=== PATIENT | female | born 1950 | race Caucasian/White ===

== ENCOUNTER 2017-11-23 07:33 | Emergency (ER) | payer MEDICARE ==
[~2017-11-23] VITALS: Ht 162.6 cm; Wt 62.6 kg
--- OUTSIDE RECORDS SUMMARY | 2017-11-23 07:36 | XMS REPORT | Clinical Summary ---
Author Author [facility] Organization [facility] Address Unknown Phone Unavailable Care Team Providers Care Director Of Reservations Name Role Phone Kourtney Bradshaw MD PCP Allergies Active Allergy Reactions Severity Noted Date Comments Citalopram Shortness Of Breath High 05/19/2017 Paroxetine Hcl Shortness Of Breath High 05/19/2017 Sertraline Shortness Of Breath High 05/19/2017 Latex Hives 05/19/2017 Sulfa (Sulfonamide Hives 05/19/2017 Antibiotics) Current Medications Prescription Sig. Disp. Refills Start End Date Status Date pantoprazole (PROTONIX) Take 1 tablet (40 mg 30 tablet 11 07/13/20 07/13/20 Active 40 MG EC tablet total) by mouth daily. 17 18 sodium,potassium,mag Take 1 Bottle by mouth 1 Bottle 0 07/13/20 sulfates (SUPREP BOWEL once for 1 dose. 17 17 PREP KIT) 17.5-3.13-1.6 gram recon soln Active Problems Not on file Encounters Date Type Specialty Care Team Description 10/23/2017 Procedure Pass Gastroenterology 10/22/2017 Telephone GastroenterMulu Wallace MD 10/21/2017 Telephone Mulu Ugarte MD 10/05/2017 Telephone Mulu Ugarte MD 08/21/2017 Procedure Pass Gastroenterology 08/19/2017 Telephone Gastroenterology Brianna Gregory MA 08/04/2017 Procedure Pass Gastroenterology 08/03/2017 Telephone Jesi Wolf LVN 07/14/2017 Telephone Mulu Ugarte MD 07/13/2017 Office Visit GastroenterMulu Wallace MD Dysphagia , unspecified type (Primary Dx);Colon cancer screening 07/13/2017 Telephone Mulu Ugarte., MD 07/06/2017 Telephone Gastroenterology Mulu Roque MD 05/19/2017 Emergency Emergency Medicine after 11/22/2016 Family History Medical History Relation Name Comments Colon cancer Neg Hx Colon polyps Neg Hx Social History Tobacco Use Types Packs/Day Years Used Date Never Smoker Alcohol Use Drinks/Week oz/Week Comments No Sex Assigned at Date Recorded Not on file Last Filed Vital Signs Vital Sign Reading Time Taken Blood Pressure 134/78 07/13/2017 3:07 PM CDT Pulse 86 07/13/2017 3:07 PM CDT Temperature 37.2 C (98.9 F) 07/13/2017 3:07 PM CDT Respiratory Rate 20 05/19/2017 3:12 PM CDT Oxygen Saturation 97% 05/19/2017 3:12 PM CDT Inhaled Oxygen - - Concentration Weight 57.6 kg (127 lb) 07/13/2017 3:07 PM CDT Height 147.3 cm (4' 10") 07/13/2017 3:07 PM CDT Body Mass Index 26.54 07/13/2017 3:07 PM CDT Plan of Treatment Health Maintenance Due Date Last Done Comments COLONOSCOPY 2000 MAMMOGRAM 2000 ZOSTER VACCINE 2010 PNEUMOCOCCAL 2015 POLYSACCHARIDE VACCINE AGE 65 AND OVER PNEUMOCOCCAL-13 2015 INFLUENZA VACCINE 05/19/2017 Results * ECG 12 lead (05/19/2017 4:12 PM) Component Value Ref Range Ventricular rate 72 Atrial rate 72 SC interval 164 QRSD interval 80 QT interval 410 QTC interval 448 P axis 1 35 QRS axis 1 -13 T wave axis 4 EKG impression Normal sinus rhythm-Moderate voltage criteria for LVH, may be normal variant-Borderline ECG-In automated comparison with ECG of 05-MAR-2016 19:12,-No significant change was found- Specimen Performing Laboratory [facility] [address] [place] [address] * Estimated GFR (05/19/2017 4:07 PM) Component Value Ref Range GFR Non Af Amer >90 mL/min/1.73 m2 GFR Af Amer >90 mL/min/1.73 m2 Comment: Chronic kidney disease: <60 mL/min/1.73m2 Kidney failure: <15 mL/min/1.73m2 The estimated GFR is calculated from the IDMS-traceable Modification of Diet in Renal Disease Equation. The accuracy of the calculation is poor when the creatinine is normal. Calculated values >90 mL/min/1.73m2 are not reported. This equation has not been validated in children (<18 years), women, the elderly (>70 years), or ethnic groups other than Caucasians and Americans. Specimen Performing Laboratory Plasma specimen [facility] [place] DEPARTMENT OF PATHOLOGY AND GENOMIC MEDICINE [address] [place] [address] * Troponin (05/19/2017 4:07 PM) Component Value Ref Range Troponin <0.01 0.00 - 0.60 ng/mL Comment: 0.11 - 1.49 ng/ml May indicate increased risk of acute coronary syndrome. >=1.5 ng/ml Consistent with acute myocardial infarction. The diagnostic value of a single normal or non-diagnostic result is questionable. Serial samples at 2-6 hour intervals are required to rule out acute myocardial injury. Specimen Performing Laboratory Plasma specimen [facility] [place] [place] DEPARTMENT OF PATHOLOGY AND GENOMIC MEDICINE [address] [place] [address] * CBC with platelet and differential (05/19/2017 4:07 PM) Component Value Ref Range WBC 11.1 (H) 4.2 - 11.0 k/uL RBC 4.46 4.04 - 5.86 m/uL HGB 13.6 11.5 - 15.3 g/dL HCT 41.1 34.0 - 45.0 % MCV 92.2 80.0 - 98.0 fL MCH 30.5 27.0 - 34.0 pg MCHC 33.1 31.5 - 36.5 g/dL RDW - SD 43.3 37.0 - 51.0 fL MPV 11.0 (H) 7.4 - 10.4 fL Platelet count 243 150 - 400 k/uL Nucleated RBC 0.00 /100 WBC Neutrophils 89.5 (H) 36.0 - 66.0 % Lymphocytes 5.4 (L) 24.0 - 44.0 % Monocytes 3.7 0.0 - 6.0 % Eosinophils 0.2 0.0 - 6.0 % Basophils 0.1 0.0 - 1.2 % Immature granulocytes 1.1 (H) 0.0 - 1.0 % Specimen Performing Laboratory Blood [facility] [place] [place] DEPARTMENT OF PATHOLOGY AND GENOMIC MEDICINE [address] [place] [address] * B natriuretic peptide (05/19/2017 4:07 PM) Component Value Ref Range BNP 36 0 - 100 pg/mL Specimen Performing Laboratory Blood [facility] [place] DEPARTMENT OF PATHOLOGY AND GENOMIC MEDICINE [address] [place] [address] * Creatine kinase, total (CPK) (05/19/2017 4:07 PM) Component Value Ref Range Creatine kinase 51 (L) 61 - 224 U/L Specimen Performing Laboratory Plasma specimen [facility] [place] DEPARTMENT OF PATHOLOGY AND GENOMIC MEDICINE [address] [place] [address] * Comprehensive metabolic panel (05/19/2017 4:07 PM) Component Value Ref Range Sodium 142 135 - 150 mEq/L Potassium 3.8 3.5 - 5.0 mEq/L Chloride 110 (H) 100 - 109 mEq/L CO2 23 (L) 24 - 32 mmol/L Anion gap 9 7 - 15 mEq/L Comment: Starting from January , anion gap calculation no longer incorporates potassium. Please note the change. BUN 9 7 - 18 mg/dL Creatinine 0.6 (L) 0.8 - 1.5 mg/dL Glucose 113 (H) 65 - 100 mg/dL Calcium 8.8 8.6 - 10.7 mg/dL Protein 7.0 6.3 - 8.2 g/dL Albumin 3.5 3.2 - 5.0 g/dL A/G ratio 1.0 0.7 - 3.8 Alkaline phosphatase 83 30 - 120 U/L AST 24 15 - 37 U/L ALT 30 30 - 65 U/L Total bilirubin 1.5 (H) 0.2 - 1.2 mg/dL Specimen Performing Laboratory Plasma specimen [facility] DEPARTMENT OF PATHOLOGY AND GENOMIC MEDICINE [address] [place] [address] after 11/22/2016 Insurance Payer Benefit Subscriber ID Type Phone Address Plan / Group [facility]IC[facility] DUAL [id number] [facility] ASHLEE ELLIS Personal/F Self 1950 Home: [address] [place] [address]
[2017-11-23] MEDS ORDERED: DIAZEPAM 2 MG TAB PO ONE (09:30)
[2017-11-23 12:29] VITALS: BP 125/71
== END 2017-11-23 12:44 | disposition home or self-care (01) ==
LOC: ER 07:33
DX: R42 Dizziness and giddiness (principal); R11.0 Nausea; H81.11 Benign paroxysmal vertigo, right ear
CPT/HCPCS: 99282